=== PATIENT | female | born 1950 | race Caucasian/White ===

== ENCOUNTER 2016-09-14 08:08 | Outpatient (CLI) | payer MEDICAID ==
[2016-09-14] MEDS ORDERED: IOPAMIDOL-300 100 ML VIAL IVP ONE (10:02)
[2016-09-14] MEDS ORDERED: IOPAMIDOL-300 50 ML VIAL PO ONE (10:02)
== END 2016-09-14 08:09 | disposition home or self-care (01) ==
DX: K44.9 Diaphragmatic hernia without obstruction or gangrene (principal); K42.9 Umbilical hernia without obstruction or gangrene; N28.1 Cyst of kidney, acquired; D18.03 Hemangioma of intra-abdominal structures
CPT/HCPCS: 36415; 74160; 82565; Q9967

== ENCOUNTER 2016-10-19 06:05 | Inpatient (IN) | payer MEDICAID ==
[2016-10-19] MEDS ORDERED: ceFAZolin 2 GM/50 ML 50 ML IV ONE (06:30)
[2016-10-19] MEDS ORDERED: LACTATED RINGERS 1,000 ML IV ONE ×4 (06:35→13:15)
[2016-10-19] MEDS ORDERED: fentaNYL 250 MCG/5 ML VIAL IVP ONE (08:00)
[2016-10-19] MEDS ORDERED: NEOSTIGMINE 1 MG/1 ML 10 ML MDV IVP ONE (08:00)
[2016-10-19] MEDS ORDERED: PROPOFOL 200 MG/20 ML VIAL IVP ONE (08:00)
[2016-10-19] MEDS ORDERED: ACETAMINOPHEN 1,000 MG/100 ML VIAL IV ONE (08:00)
[2016-10-19] MEDS ORDERED: SUCCINYLCHOLINE 200 MG/10 ML VIAL IVP ONE (08:00)
[2016-10-19] MEDS ORDERED: ONDANSETRON 4 MG/2 ML VIAL IVP ONE (08:00)
[2016-10-19] MEDS ORDERED: GLYCOPYRROLATE 1 MG/5 ML VIAL IVP ONE (08:00)
[2016-10-19] MEDS ORDERED: MIDAZOLAM 2 MG/2 ML VIAL IVP ONE (08:00)
[2016-10-19] MEDS ORDERED: DEXAMETHASONE 4 MG/ML VIAL IVP ONE (08:00)
[2016-10-19] MEDS ORDERED: LIDOCAINE-MPF 2% 5 ML VIAL IM ONE (08:00)
[2016-10-19] MEDS ORDERED: HYDROmorphone 1 MG/ML SYRINGE IVP ONE (08:00)
[2016-10-19] MEDS ORDERED: ROCURONIUM 50 MG/5 ML VIAL IVP ONE (08:00)
[2016-10-19] MEDS ORDERED: BUPIVACAINE 0.5%-EPI 1:200000 PF 30 ML VIAL SUBQ ONE (08:28)
[2016-10-19] MEDS ORDERED: SUFENTA/ROPIV 0.5 MCG/0.2% 150 ML EP PRN (09:33)
[2016-10-19] MEDS ORDERED: METOCLOPRAMIDE 10 MG/2 ML VIAL IVP PRN (10:01)
[2016-10-19] MEDS ORDERED: NALBUPHINE 20 MG/ML AMP IVP PRN (10:01)
[2016-10-19] MEDS ORDERED: ONDANSETRON 4 MG/2 ML VIAL ONE (14:20)
[2016-10-19] MEDS: D5NS W/20 MEQ KCL 1,000 ML IV SCH ×2 (14:30→23:42)
[2016-10-19] MEDS ORDERED: LACTATED RINGERS 500 ML IV ONE (15:00)
[2016-10-19] MEDS: SODIUM CHLORIDE FLUSH 0.9% 10 ML SYRINGE IVP SCH ×2 (15:25→22:55)
[2016-10-19] MEDS: ceFAZolin 2 GM/50 ML 50 ML IV SCH (17:56)
[2016-10-20] MEDS: ceFAZolin 2 GM/50 ML 50 ML IV SCH (00:44)
[2016-10-20] MEDS ORDERED: SODIUM CHLORIDE 0.9% 500 ML IV SCH (01:01)
[2016-10-20] MEDS: PANTOPRAZOLE 40 MG VIAL IVP SCH (06:46)
[2016-10-20] MEDS: SODIUM CHLORIDE FLUSH 0.9% 10 ML SYRINGE IVP SCH ×3 (06:46→21:44)
[2016-10-20] MEDS: D5NS W/20 MEQ KCL 1,000 ML IV SCH ×3 (07:03→16:23)
[2016-10-20] MEDS: diphenhydrAMINE INJ 50 MG/ML VIAL IV PRN ×2 (10:00→12:02)
[2016-10-20] MEDS: SODIUM CHLORIDE FLUSH 0.9% 10 ML SYRINGE IVP PRN (12:03)
[2016-10-20] MEDS: ONDANSETRON 4 MG/2 ML VIAL IVP PRN (15:37)
[2016-10-20] MEDS ORDERED: NALBUPHINE 20 MG/ML AMP IVP PRN (15:54)
[2016-10-20] MEDS ORDERED: diphenhydrAMINE INJ 50 MG/ML VIAL IVP PRN (15:54)
[2016-10-20] MEDS ORDERED: ONDANSETRON 4 MG/2 ML VIAL IVP PRN (15:54)
[2016-10-20] MEDS: SUFENTA/ROPIV 0.5 MCG/0.2% 150 ML EP PRN ×2 (16:33→18:18)
[2016-10-21] MEDS: D5NS W/20 MEQ KCL 1,000 ML IV SCH ×4 (00:21→20:11)
[2016-10-21] MEDS: SODIUM CHLORIDE FLUSH 0.9% 10 ML SYRINGE IVP PRN (00:21)
[2016-10-21] MEDS: ONDANSETRON 4 MG/2 ML VIAL IVP PRN (00:30)
[2016-10-21] MEDS: diphenhydrAMINE INJ 50 MG/ML VIAL IV PRN ×2 (00:41→09:23)
[2016-10-21] MEDS: SUFENTA/ROPIV 0.5 MCG/0.2% 150 ML EP PRN ×2 (04:35→15:54)
[2016-10-21] MEDS: SODIUM CHLORIDE FLUSH 0.9% 10 ML SYRINGE IVP SCH ×3 (06:51→20:11)
[2016-10-21] MEDS: PANTOPRAZOLE 40 MG VIAL IVP SCH (06:51)
[2016-10-22] MEDS: SUFENTA/ROPIV 0.5 MCG/0.2% 150 ML EP PRN ×3 (01:43→22:09)
[2016-10-22] MEDS: D5NS W/20 MEQ KCL 1,000 ML IV SCH ×3 (03:09→20:33)
[2016-10-22] MEDS: PANTOPRAZOLE 40 MG VIAL IVP SCH (06:21)
[2016-10-22] MEDS: SODIUM CHLORIDE FLUSH 0.9% 10 ML SYRINGE IVP SCH ×3 (06:22→20:15)
[2016-10-23] MEDS: SODIUM CHLORIDE FLUSH 0.9% 10 ML SYRINGE IVP SCH ×3 (06:38→19:59)
[2016-10-23] MEDS: D5NS W/20 MEQ KCL 1,000 ML IV SCH ×2 (06:38→11:52)
[2016-10-23] MEDS: PANTOPRAZOLE 40 MG VIAL IVP SCH (06:45)
[2016-10-23] MEDS ORDERED: oxyCOD/ACETAMIN 5 MG/325 MG TABLET PO PRN (09:59)
[2016-10-23] MEDS: ONDANSETRON 4 MG/2 ML VIAL IVP PRN (16:51)
[2016-10-23] MEDS: oxyCOD/ACETAMIN 5 MG/325 MG TABLET PO PRN (16:55)
[2016-10-23] MEDS ORDERED: D5NS W/20 MEQ KCL 1,000 ML IV SCH (18:14)
[2016-10-23] MEDS: HYDROmorphone 1 MG/ML SYRINGE IVP PRN ×2 (19:57→22:10)
[2016-10-24] MEDS: oxyCOD/ACETAMIN 5 MG/325 MG TABLET PO PRN ×2 (05:25→09:26)
[2016-10-24] MEDS: SODIUM CHLORIDE FLUSH 0.9% 10 ML SYRINGE IVP SCH (06:01)
[2016-10-24] MEDS: PANTOPRAZOLE 40 MG VIAL IVP SCH (06:30)
[2016-10-24] MEDS ORDERED: hydroCHLOROthiazide 12.5 MG CAPSULE PO SCH (09:00)
[2016-10-24] MEDS ORDERED: LOSARTAN 50 MG TABLET PO SCH (09:00)
== END 2016-10-24 09:49 | disposition home or self-care (01) | DRG 328 ==
PROC: 0WQF0ZZ Repair Abdominal Wall, Open Approach (ICD-10-PCS; principal; 2016-10-19 07:30)
PROC: 0FN00ZZ Release Liver, Open Approach (ICD-10-PCS; principal; 2016-10-19 07:30)
PROC: 0DS60ZZ Reposition Stomach, Open Approach (ICD-10-PCS; principal; 2016-10-19 07:30)
PROC: 0DNS0ZZ (ICD-10-PCS; principal; 2016-10-19 07:30)
PROC: 0DN60ZZ Release Stomach, Open Approach (ICD-10-PCS; principal; 2016-10-19 07:30)
PROC: 0DJ04ZZ Inspection of Upper Intestinal Tract, Percutaneous Endoscopic Approach (ICD-10-PCS; principal; 2016-10-19 07:30)
PROC: 0DN80ZZ Release Small Intestine, Open Approach (ICD-10-PCS; principal; 2016-10-19 07:30)
PROC: 0DQ40ZZ Repair Esophagogastric Junction, Open Approach (ICD-10-PCS; principal; 2016-10-19 07:30)
DX: K21.9 Gastro-esophageal reflux disease without esophagitis (principal); K44.9 Diaphragmatic hernia without obstruction or gangrene; K43.2 Incisional hernia without obstruction or gangrene; K66.0 Peritoneal adhesions (postprocedural) (postinfection); I10 Essential (primary) hypertension; E78.00 Pure hypercholesterolemia, unspecified; F41.9 Anxiety disorder, unspecified; Z87.01 Personal history of pneumonia (recurrent); Z87.891 Personal history of nicotine dependence; Z79.82 Long term (current) use of aspirin

== ENCOUNTER 2017-01-24 08:04 | Outpatient (CLI) | payer OTHER ==
--- NOTE | 2017-01-24 11:24 | XRAY Report ---
LEFT HIP AND PELVIS: 01/24/2017 CLINICAL INDICATION: Pain, decreased range of motion. FINDINGS: Frontal view of the hips and pelvis and frogleg lateral view of the left hip demonstrate m ild osteoarthritis. There is no evidence of acute fracture or dislocation. No radiopaque foreign body is seen in the soft tissues. IMPRESSION: MILD LEFT HIP OSTEOARTHRITIS. JOB #: [id number] EXT JOB #:[id number]
== END 2017-01-24 08:05 | disposition home or self-care (01) ==
LOC: DI 08:04
PROVIDERS: ATTEND Physician Assistant
DX: R01.1 Cardiac murmur, unspecified (principal); M16.12 Unilateral primary osteoarthritis, left hip; I51.7 Cardiomegaly
CPT/HCPCS: 93306

== ENCOUNTER 2017-05-15 08:48 | Emergency (ER) | payer OTHER, MEDICAID ==
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
[2017-05-15] MEDS: oxyCOD/ACETAMIN 5 MG/325 MG TABLET PO STA ×2 (09:10→14:14)
[2017-05-15] MEDS ORDERED: oxyCOD/ACETAMIN 5 MG/325 MG TABLET PO ONE ×2 (09:12→14:16)
--- NOTE | 2017-05-15 10:13 | XRAY Preliminary Report ---
Exam: XR Knee 4 View RT IMPRESSION: 1. No definite acute osseous abnormality. 2. Mild possible cortical concavity along the anterior femoral condyle may be degenerative in nature. Small impaction fracture, less likely. 3. Nodular calcifications/ossifications at the medial aspect of the knee appear chronic, likely ligam entous. Loose bodies not excluded. 4. Small joint effusion. 5. Degenerative disease. 6. Probable mild anterior soft tissue swelling. [facility] SITE ID: [id number]
--- NOTE | 2017-05-15 10:16 | XRAY Report ---
EXAM: RIGHT KNEE RADIOGRAPHY EXAM DATE: 05/15/2017 09:46 AM. CLINICAL HISTORY: Fall. Fall this morning resulting in injury and pain to right knee and anterior abr asion to patellar region. COMPARISON: None. TECHNIQUE: 3 views. FINDINGS: Bones: No definite fracture or acute bone lesion. Mild focal concavity along the anterior articular s urface of the femoral condyle, likely the medial, on the lateral view may be due to superimposition o f some spurring. A small area of focal impaction fracture is considered less likely. Joints: No subluxation. Significant joint space narrowing not evident on these nonweightbearing views . There is evidence of some medial compartment degenerative disease. Medial tibial spine spurring pre sent. Small joint effusion. Nodular calcifications/ossifications medial to the joint space and medial femoral condyle have a chronic appearance, likely ligamentous calcifications. Loose bodies not exclu ded. Old fracture fragments, less likely. Soft Tissues: Probable mild pretibial and proximal prepatellar soft tissue swelling. IMPRESSION: 1. No definite acute osseous abnormality. 2. Mild possible cortical concavity along the anterior femoral condyle may be degenerative in nature. Small impaction fracture, less likely. 3. Nodular calcifications/ossifications at the medial aspect of the knee appear chronic, likely ligam entous. Loose bodies not excluded. 4. Small joint effusion. 5. Degenerative disease. 6. Probable mild anterior soft tissue swelling. [facility] Referring Provider Line: [phone] SITE ID: [id number]
--- NOTE | 2017-05-15 10:18 | XRAY Preliminary Report ---
Exam: XR Forearm RT IMPRESSION: 1. No definite acute abnormality. 2. Nondisplaced chronic or acute radial neck fracture not excluded. Clinical correlation recommended. If there were to be symptoms at this site, dedicated elbow radiography could be performed. [facility] SITE ID: [id number]
--- NOTE | 2017-05-15 10:19 | XRAY Preliminary Report ---
Exam: XR Forearm LT IMPRESSION: Normal left forearm radiography. [facility] SITE ID: [id number]
--- NOTE | 2017-05-15 10:22 | XRAY Report ---
EXAM: LEFT FOREARM RADIOGRAPHY EXAM DATE: 05/15/2017 09:45 AM. CLINICAL HISTORY: Pain after fall. COMPARISON: 05/15/2017. TECHNIQUE: 2 views. FINDINGS: Bones: Normal. No fractures or bone lesions. Joints: Normal. No effusions or subluxations in the visualized wrist or elbow joints. Soft Tissues: Normal. No soft tissue swelling. IMPRESSION: Normal left forearm radiography. [facility] Referring Provider Line: [phone] SITE ID: [id number]
--- NOTE | 2017-05-15 10:24 | CT Preliminary Report ---
Exam: CT Head W/O IMPRESSION: Generalized mild age-related cortical atrophic changes without evidence of acute intracra nial abnormality. [facility] SITE ID: [id number]
--- NOTE | 2017-05-15 10:24 | XRAY Report ---
EXAM: RIGHT FOREARM RADIOGRAPHY EXAM DATE: 05/15/2017 09:46 AM. CLINICAL HISTORY: Fall. Fall this morning. Forearm pain. COMPARISON: None. TECHNIQUE: 2 views. FINDINGS: Bones: No definite acute fracture. Subtle possible sclerosis and minimal cortical irregularity involv ing the radial neck. Nondisplaced fracture, chronic or acute, is not excluded and clinical correlatio n is recommended. Joints: No joint subluxation. First carpometacarpal joint degenerative disease. Soft Tissues: Normal. No soft tissue swelling. IMPRESSION: 1. No definite acute abnormality. 2. Nondisplaced chronic or acute radial neck fracture not excluded. Clinical correlation recommended. If there were to be symptoms at this site, dedicated elbow radiography could be performed. [facility] Referring Provider Line: [phone] SITE ID: [id number]
--- NOTE | 2017-05-15 10:26 | CT Report ---
EXAM: CT HEAD EXAM DATE: 05/15/2017 09:56 AM. CLINICAL HISTORY: Fall with head and facial injury. Facial abrasion. Pain. COMPARISON: None. TECHNIQUE: Multiaxial CT images were obtained from the foramen magnum to the vertex. IV contrast: Non e. Reformats: Coronal. In accordance with CT protocol optimization, one or more of the following dose reduction techniques w ere utilized for this exam: automated exposure control, adjustment of mA and/or KV based on patient s ize, or use of iterative reconstructive technique. FINDINGS: Parenchyma: No intraparenchymal hemorrhage. No evidence of mass, midline shift, or CT findings of acu te infarction. Grewal-white differentiation is distinct. Extraaxial Spaces: Normal for age. No subdural or epidural collections identified. Ventricles: The ventricles and cortical sulci are mildly enlarged, consistent with age-related tissue loss. Sinuses: Imaged paranasal sinuses, orbits, and mastoids show no significant abnormality. Bones: No evidence of fracture or calvarial defect. Other: Diffuse mild chronic microangiopathic white matter changes are evident. IMPRESSION: Generalized mild age-related cortical atrophic changes without evidence of acute intracra nial abnormality. [facility] Referring Provider Line: [phone] SITE ID: [id number]
--- NOTE | 2017-05-15 10:28 | CT Preliminary Report ---
Exam: CT Cervical Spine W/O IMPRESSION: 1. No acute osseous abnormality in the cervical spine. 2. Moderate to severe degenerative cervical spondylosis. [facility] SITE ID: [id number]
--- NOTE | 2017-05-15 10:31 | CT Report ---
EXAM: CT CERVICAL SPINE WITHOUT CONTRAST DATE: 05/15/2017 09:56 AM HISTORY: Fall; head injury. Neck pain. COMPARISONS: None. TECHNIQUE: Thin-section axial images were acquired of the cervical spine without contrast. Post-proce ssing: Coronal and sagittal reformats. Other: None. In accordance with CT protocol optimization, one or more of the following dose reduction techniques w ere utilized for this exam: automated exposure control, adjustment of mA and/or KV based on patient s ize, or use of iterative reconstructive technique. FINDINGS: Alignment: Normal. No scoliosis or spondylolisthesis. Bones: No fracture or bone lesion. Interspace Levels/Facets: Partial fusion at C4-C5 may be congenital. Moderate to severe multilevel de creased disk height, most pronounced at C5-C6 and C6-C7 where there are small posterior disk osteophy te complexes. Moderate multilevel facet arthropathy. Other: The paravertebral and prevertebral soft tissues are normal. The lung apices are clear. IMPRESSION: 1. No acute osseous abnormality in the cervical spine. 2. Moderate to severe degenerative cervical spondylosis. [facility] Referring Provider Line: [phone] SITE ID: [id number]
--- NOTE | 2017-05-15 10:32 | CT Preliminary Report ---
Exam: CT Facial Bones W/O IMPRESSION: Acute, comminuted nasal bone fracture. [facility] SITE ID: [id number]
--- NOTE | 2017-05-15 10:35 | CT Report ---
EXAM: CT MAXILLOFACIAL WITHOUT CONTRAST EXAM DATE: 05/15/2017 09:56 AM. CLINICAL HISTORY: Fall; head and facial injury. Pain. COMPARISONS: None. TECHNIQUE: Thin-section axial images were acquired of the face without contrast. Post-processing: Cor onal and sagittal reformats. Other: None. In accordance with CT protocol optimization, one or more of the following dose reduction techniques w ere utilized for this exam: automated exposure control, adjustment of mA and/or KV based on patient s ize, or use of iterative reconstructive technique. FINDINGS: Bones: Comminuted nasal bone fracture. No other fracture. Temporomandibular Joints: The temporomandibular joints are symmetric and normally located. Sinuses: Normal. No mucosal thickening or fluid levels. Other: Diffuse soft tissue swelling about the nose. Small fluid in the left mastoid air cells. IMPRESSION: Acute, comminuted nasal bone fracture. [facility] Referring Provider Line: [phone] SITE ID: [id number]
[2017-05-15] MEDS ORDERED: LIDOCAINE-EPINEPH-TETRACAINE 3 ML SYRINGE TOP ONE (10:40)
[2017-05-15] MEDS: LIDOCAINE-EPINEPH-TETRACAINE 3 ML SYRINGE TOP STA (10:41)
[2017-05-15] MEDS ORDERED: SODIUM CHLORIDE FLUSH 0.9% 10 ML SYRINGE IVP ONE (12:11)
[2017-05-15] MEDS: CEPHALEXIN 250 MG CAPSULE PO STA (12:45)
[2017-05-15] MEDS ORDERED: CEPHALEXIN 250 MG CAPSULE PO ONE (12:48)
[2017-05-15] MEDS: LIDOCAINE 1% 2 ML VIAL SUBQ STA (13:10)
[2017-05-15] MEDS ORDERED: LIDOCAINE 1% 2 ML VIAL ONE (13:12)
[2017-05-15 13:51] VITALS: BP 128/69
== END 2017-05-15 14:10 | disposition home or self-care (01) ==
LOC: ED 08:48
DX: S02.2XXB Fracture of nasal bones, initial encounter for open fracture (principal); S01.81XA Laceration without foreign body of other part of head, initial encounter; S42.401A Unspecified fracture of lower end of right humerus, initial encounter for closed fracture; S89.91XA Unspecified injury of right lower leg, initial encounter; W18.09XA Striking against other object with subsequent fall, initial encounter; Y92.410 Unspecified street and highway as the place of occurrence of the external cause; I10 Essential (primary) hypertension
CPT/HCPCS: 12013; 70450; 70486; 72125; 96372; 99283

== ENCOUNTER 2017-09-11 08:04 | Outpatient (CLI) | payer MEDICARE ==
--- NOTE | 2017-09-12 16:07 | Mammography Report ---
DATE OF SERVICE: 09/11/2017 DIGITAL SCREENING MAMMOGRAM: 09/11/2017 CLINICAL INDICATION: A 67-year-old with history of late childbearing for screening. COMPARISON: 07/2009, 06/2008, 05/2007. TECHNIQUE: Routine CC and MLO projections were obtained of the breasts. FINDINGS: The breasts demonstrate scattered fibroglandular densities bilaterally. Coarse and punctate, typically benign calcifications are present. No suspicious masses, clustered microcalcifications, or regions of architectural distortion are identified. IMPRESSION: BENIGN FINDINGS. RECOMMENDATION: Routine annual screening unless otherwise clinically indicated. BIRADS CATEGORY 2 - BENIGN FINDINGS. STANDARD QUALIFYING STATEMENTS: 1. This examination was reviewed with the aid of Computer-Aided Detection (CAD). 2. A negative or benign imaging report should not delay biopsy if clinically suspicious findings are present. Consider surgical consultation if warranted. More than 5% of cancers are not identified by imaging. 3. Dense breasts may obscure an underlying neoplasm. TD: 09/12/2017 16:06
== END 2017-09-11 08:05 | disposition home or self-care (01) ==
LOC: DI 08:04
PROVIDERS: ATTEND Physician Assistant
DX: Z12.31 Encounter for screening mammogram for malignant neoplasm of breast (principal)
CPT/HCPCS: 77067

== ENCOUNTER 2017-09-11 08:07 | Outpatient (CLI) | payer MEDICARE ==
--- NOTE | 2017-09-11 16:53 | DEXA Report ---
DEXA SCAN: 09/11/2017 CLINICAL INDICATION: Postmenopausal. TECHNIQUE: Dual energy x-ray absorptiometry (DXA) was performed on a [employer] system. Regions measured are the AP spine, femoral neck, and, if needed, forearm. COMPARISON: None. In accordance with the International Society for Clinical Densitometry (ISCD) guidelines, data from previous exams may be reanalyzed using current recommendations andtechniques. This is done to allow a more accurate basis for comparison with the current study. FINDINGS: The data for the lumbar spine is as follows: REGION BMD (g/cm/cm) T-SCORE Z-SCORE L1 0.909 -1.8 -1.0 L2 1.008 -1.6 -0.8 L3 1.022 -1.5 -0.7 L4 1.013 -1.6 -0.7 TOTAL 0.991 -1.6 -0.8 NOTE: All evaluable vertebrae are used for classification. The data for the hip is as follows: REGION BMD (g/cm/cm) T-SCORE Z-SCORE Neck 1.179 1.0 2.0 TOTAL 0.967 -0.3 0.3 NOTE: The femoral neck or total proximal femur, whichever is lowest, is used for classification. IMPRESSION THE WHO CLASSIFICATION BASED ON THE INTERNATIONAL REFERENCE STANDARD IS OSTEOPENIA. THE FRACTURE RISK IS INCREASED. RECOMMENDATION: Patients with diagnosis of osteoporosis or osteopenia should have regular bone mineral density assessment. For those eligible for Medicare, routine testing is allowed once every 2 years. Testing frequency can be increased for patients who have rapidly progressing disease or for those who are receiving medical therapy to restore bone mass. COMMENT: World Health Organization (WHO) definitions for osteoporosis and osteopenia: NORMAL BMD: T-score at 1.0 or higher, fracture risk is low. OSTEOPENIA BMD: T-score between 1.0 and -2.5, fracture risk is increased. OSTEOPOROSIS BMD: T-score at 2.5 or lower, fracture risk high. National Osteoporosis Foundation recommends: 1. Obtain adequate dietary calcium (at least 1200 mg per day) and vitamin D (400 -800 international units per day). 2. Participate, as appropriate, in regular weightbearing and muscle- strengthening exercise. 3. Avoid tobacco use and reduce alcohol and caffeine intake. 4. For more detailed information see the website at www.NOF.org. TD: 09/11/2017 11:47 MTDD
== END 2017-09-11 08:08 | disposition home or self-care (01) ==
LOC: DI 08:07
PROVIDERS: ATTEND Physician Assistant
DX: Z13.820 Encounter for screening for osteoporosis (principal); M85.88 Other specified disorders of bone density and structure, other site; N95.8 Other specified menopausal and perimenopausal disorders
CPT/HCPCS: 77080

== ENCOUNTER 2019-10-01 07:08 | Day surgery (SDC) | payer MEDICARE ==
[~2019-10-01 07:08] MED LIST: SODIUM/POTASSIUM/MAG SULFATES 354 ML PREP KIT PO SCH
[2019-10-01] MEDS ORDERED: LACTATED RINGERS 1,000 ML IV ONE (07:19)
[2019-10-01] MEDS ORDERED: MIDAZOLAM 2 MG/2 ML VIAL IVP ONE (09:08)
[2019-10-01] MEDS ORDERED: fentaNYL 250 MCG/5 ML VIAL IVP ONE (09:08)
[2019-10-01 10:13] VITALS: BP 123/64
== END 2019-10-01 07:09 | disposition home or self-care (01) ==
LOC: SDS 07:08
PROVIDERS: ATTEND Surgery
PROC: 0DBN8ZX Excision of Sigmoid Colon, Via Natural or Artificial Opening Endoscopic, Diagnostic (ICD-10-PCS; 2019-10-01)
PROC: 0DBP8ZX Excision of Rectum, Via Natural or Artificial Opening Endoscopic, Diagnostic (ICD-10-PCS; principal; 2019-10-01 08:45)
DX: Z12.11 Encounter for screening for malignant neoplasm of colon (principal); K63.5 Polyp of colon; K62.1 Rectal polyp; K64.4 Residual hemorrhoidal skin tags; K64.8 Other hemorrhoids; I10 Essential (primary) hypertension; E78.00 Pure hypercholesterolemia, unspecified; F41.9 Anxiety disorder, unspecified; Z87.891 Personal history of nicotine dependence
CPT/HCPCS: 45380; A9270; J3010; J7120

== ENCOUNTER 2022-05-21 15:06 | Outpatient (CLI) | payer MEDICARE ==
--- NOTE | 2022-05-22 11:34 | Mammography Report ---
BILATERAL DIGITAL SCREENING MAMMOGRAM 3D/2D WITH EXAGGERATED CC: 05/21/2022 CLINICAL: Routine screening. Comparison is made to exams dated: 09/11/2017 mammogram and 07/22/2009 mammogram - [facility]. There are scattered areas of fibroglandular density in both breasts (category b / 25%-50% glandular t issue). There are benign calcifications in both breasts. There also are benign vascular calcifications in harry th breasts. No significant masses, calcifications, or other findings are seen in either breast. There has been no significant interval change. IMPRESSION: BENIGN There is no mammographic evidence of malignancy. A 1 year screening mammogram is recommended. Based on the Tyrer Cuzick model (a risk assessment model) the patients lifetime risk is 5.8% and her 10 year risk is 3.4%. According to the ACR, ACS, and NCCN guidelines, an annual breast MRI exam angelic g with mammogram is recommended if the patients lifetime risk is 20% or greater. This exam was interpreted at Station ID: [id number]. NOTE: For mammograms, a report in lay terms will be sent to the patient. Approximately 15% of breast malignancies will not be visualized mammographically. In the management of a palpable breast mass, a negative mammogram must not discourage biopsy of a clinically suspicious lesion. Electronically Signed By: Paul wheeler/latisha:05/22/2022 09:11:04 ACR BI-RADS Category 2: Benign Finding(s) 3342F PARENCHYMAL PATTERN: (A) - The breast(s) demonstrate(s) scattered fibroglandular densities. BI-RADS CATEGORY: (2) - 2 RECOMMENDATION: (ANNUAL) - Recommend routine annual screening mammography. [id number] 1 year screening LATERALITY: (B)
== END 2022-05-21 15:07 | disposition home or self-care (01) ==
LOC: DI.S 15:06
PROVIDERS: ATTEND Nurse Practitioner Family
DX: Z12.31 Encounter for screening mammogram for malignant neoplasm of breast (principal)

== ENCOUNTER 2022-11-21 11:55 | Outpatient (CLI) | payer MEDICARE | END 2022-11-21 11:56 | disposition critical access hospital (66) | LOC: EMS 11:55 | DX: M54.2 Cervicalgia (principal); V43.53XA Car driver injured in collision with pick-up truck in traffic accident, initial encounter; Y92.413 State road as the place of occurrence of the external cause | CPT/HCPCS: A0425; A0429 ==

== ENCOUNTER 2022-11-21 12:26 | Emergency (ER) | payer MEDICARE ==
[2022-11-21] MEDS ORDERED: ACETAMINOPHEN 1,000 MG/100 ML 1,000 MG/100 ML BAG IV ONE (12:34)
[2022-11-21] MEDS ORDERED: ONDANSETRON 4 MG/2 ML VIAL IVP STA (12:41)
[2022-11-21] MEDS ORDERED: MORPHINE 2 MG/ML CARPUJECT IVP STA (12:41)
[2022-11-21] MEDS ORDERED: HYDROmorphone 1 MG/ML CARPUJECT IVP STA (13:32)
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
[2022-11-21] MEDS ORDERED: ACETAMINOPHEN 500 MG TABLET PO STA (13:40)
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
[2022-11-21 14:20] VITALS: BP 176/84
[2022-11-21] MEDS ORDERED: LIDOCAINE PATCH 5% TOP STA (14:25)
== END 2022-11-21 15:00 | disposition home or self-care (01) ==
LOC: EDUNIT# → ED 12:26
DX: S16.1XXA Strain of muscle, fascia and tendon at neck level, initial encounter (principal); V89.2XXA Person injured in unspecified motor-vehicle accident, traffic, initial encounter; Y93.89 Activity, other specified; I10 Essential (primary) hypertension
CPT/HCPCS: 70450; 72125; 96374; 96375; 99283; 99284; A9270; J1170

== ENCOUNTER 2023-03-28 11:07 | Outpatient (CLI) | payer MEDICARE ==
[2023-03-28] MEDS ORDERED: BARIUM SULFATE 450 ML BOTTLE PO ONE (15:39)
[2023-03-28] MEDS ORDERED: iohexoL-300 100 ML VIAL IVP ONE (15:39)
--- NOTE | 2023-03-28 16:06 | CT Report ---
PROCEDURE: ABDOMEN W INDICATIONS: RIGHT UPPER QUADRANT PAIN CONTRAST: 100mL Omnipaque 300 TECHNIQUE: After the administration of oral and intravenous contrast, 5 mm thick sections acquired from the diap hragms to the iliac crests. 5 mm thick coronal and sagittal reformats were acquired. For radiation dose reduction, the following was used: automated exposure control, adjustment of mA and/or kV accor ding to patient size. COMPARISON: Abdominal ultrasound 03/11/2020, CT abdomen 09/14/2016 FINDINGS: Visualized lung bases: No pleural effusion. Liver and biliary tree: No suspect focal hepatic lesion. No biliary ductal dilation. Gallbladder: Possible/equivocal small stone near the fundus (2/40). Spleen: Unremarkable. Pancreas: Unremarkable. Adrenal glands: Unremarkable. Kidneys and ureters: No hydronephrosis. Redemonstrated right renal cortical cyst without suspicious f eatures identified. 2-3 mm nonobstructing stone right mid kidney, not significantly changed. Gastrointestinal tract: Visualized small and large bowel is non-dilated. Visualized peritoneal cavity: No free air or free fluid. Vasculature: No abdominal aortic aneurysm. Lymph nodes: No highly suspicious lymph nodes visualized. Abdominal wall: Multiple small fat-containing midline ventral abdominal wall hernias present. Musculoskeletal: Degenerative change of the spine. IMPRESSION: 1. Possible small gallstone present. The gallbladder is not well evaluated by CT. Abdominal ultrasoun d could be obtained for further evaluation if clinically indicated. 2. Small nonobstructing right renal stone as before. Reviewed by: Raymond Owen MD on 03/28/2023 4:04 PM PDT Approved by: Raymond Owen MD on 03/28/2023 4:04 PM PDT Station ID: [id number]
== END 2023-03-28 11:08 | disposition home or self-care (01) ==
LOC: DI 11:07
PROVIDERS: ATTEND Nurse Practitioner Family
DX: R10.11 Right upper quadrant pain (principal); N20.0 Calculus of kidney
CPT/HCPCS: 74160; A9270; Q9967

== ENCOUNTER 2023-06-15 14:27 | Emergency (ER) | payer MEDICARE ==
[2023-06-15 14:52] LABS: BASOPHILS % (AUTO) 0.2 %; EOSINOPHILS % (AUTO) 0.1 %; HCT - HEMATOCRIT 42.7 % (37.0-47.0); LYMPHOCYTES # (AUTO) 1.4 10^3/uL (1.5-3.5); LYMPHOCYTES % (AUTO) 11.4 %; MEAN CORPUSCULAR HEMOGLOBIN 29.4 pg (27.0-31.0); MEAN CORPUSCULAR HGB CONC 32.8 g/dL (32.0-36.0); MEAN CORPUSCULAR VOLUME 89.7 fL (81.0-99.0); MEAN PLATELET VOLUME 11.5 fL (7.9-10.8); MONOCYTES # (AUTO) 0.8 10^3/uL (0.0-1.0); MONOCYTES % (AUTO) 6.2 %; NEUTROPHILS # (AUTO) 10.2 10^3/uL (1.5-6.6); NEUTROPHILS % (AUTO) 81.8 %; PLT - PLATELET COUNT 239 10^3/uL (130-450); RED BLOOD COUNT 4.76 10^6/uL (4.20-5.40); RED CELL DISTRIBUTION WIDTH 13.9 % (12.0-15.0); WHITE BLOOD COUNT 12.5 x10^3/uL (4.8-10.8)
[2023-06-15 15:14] LABS: ALBUMIN 4.7 g/dL (3.2-5.5); ALBUMIN/GLOBULIN RATIO 1.5 (1.0-2.2); BILIRUBIN,TOTAL 0.9 mg/dL (0.2-1.0); CALCIUM 9.9 mg/dL (8.5-10.3); CREATININE 0.9 mg/dL (0.6-1.3); POTASSIUM 3.7 mmol/L (3.5-4.5); TOTAL PROTEIN 7.8 g/dL (6.4-8.9)
[2023-06-15] MEDS ORDERED: ONDANSETRON 4 MG/2 ML VIAL IVP STA (15:57)
[2023-06-15] MEDS ORDERED: SODIUM CHLORIDE 0.9% 1,000 ML IV STA (15:57)
[2023-06-15] MEDS ORDERED: HYDROmorphone 1 MG/ML CARPUJECT IVP STA ×2 (15:57→18:00)
--- NOTE | 2023-06-15 15:59 | ED Physician Documentation ---
PD HPI ABD PAIN - Stated complaint Stated Complaint: ABD PX - Chief complaint Chief Complaint: Abd Pain - History obtained from History obtained from: Patient - Additional information Additional information: 72-year-old woman with history of hysterectomy, hiatal hernia repair x2, hypertension and anxiety presents with abdominal pain. It started gradually over the last 24 hours and is much more severe today and seems more on the right side with radiation to the right flank. She has been vomiting and cannot keep anything down with diminished bowel movements related to same and concentrated urine without other urinary complaints. She had a CT a few months ago for right upper quadrant pain showing both a gallstone and a nephrolith on that side. PD PAST MEDICAL HISTORY - Past Medical History Past Medical History: Yes Cardiovascular: Hypertension, High cholesterol Respiratory: None Endocrine/Autoimmune: None GI: GERD, Hiatal hernia : Frequency HEENT: Chronic hearing loss Psych: None, Depression, Anxiety, Claustrophobia Musculoskeletal: None Derm: None - Past Surgical History Past Surgical History: Yes General: Appendectomy /LVN HOME HEALTH: Hysterectomy HEENT: Tonsil/Adenoidectomy - Present Medications Home Medications: Ambulatory Orders Medication Instructions Recorded Confirmed Losartan/Hydrochlorothiazide 1 each PO DAILY 10/18/16 06/15/23 [Hyzaar 50-12.5 Tablet] Atorvastatin Calcium [Lipitor] 40 mg PO QPM 10/19/16 06/15/23 Trazodone HCl 100 mg PO QPM 10/19/16 06/15/23 buPROPion HCL [Bupropion HCl Sr] 300 mg PO BID 10/19/16 06/15/23 Cefdinir 300 mg PO BID #20 cap 06/15/23 Ondansetron Odt [Zofran] 4 mg TL Q6H PRN #10 tablet 06/15/23 Oxycodone HCl/Acetaminophen 1 - 2 each PO Q6H PRN #14 tablet 06/15/23 [Percocet 5-325 mg Tablet] - Allergies Allergies/Adverse Reactions: Allergies Allergy/AdvReac Type Severity Reaction Status Date / Time No Known Drug Allergies Allergy Verified 11/21/22 13:31 - Social History Does the pt smoke?: No Smoking Status: Never smoker Does the pt drink ETOH?: No Does the pt have substance abuse?: No - Immunizations Immunizations are current?: Yes - POLST Patient has POLST: No PD ED PE NORMAL - Vitals Vital signs reviewed: Yes - General General: Alert and oriented X 3, No acute distress - HEENT HEENT: PERRL, EOMI - Neck Neck: Supple, no meningeal sign, No bony TTP - Cardiac Cardiac: RRR, No murmur - Respiratory Respiratory: No respiratory distress, Clear bilaterally - Abdomen Abdomen: Other (Right upper quadrant tenderness without surgical signs, slightly diminished but not absent bowel sounds.) - Extremities Extremities: No edema, No calf tenderness / cord - Neuro Neuro: Alert and oriented X 3, Normal speech Results - Vitals Vitals: Vital Signs - 24 hr 06/15/23 06/15/23 06/15/23 14:32 16:21 18:24 Temperature 36.8 C 36.1 C L Heart Rate 70 63 65 Respiratory 16 16 18 Rate Blood Pressure 180/90 H 211/84 H 174/95 H O2 Saturation 98 97 96 Oxygen O2 Source Room air - Labs Labs: Laboratory Tests 06/15/23 06/15/23 06/15/23 14:48 14:48 17:44 WBC 12.5 H RBC 4.76 Hgb 14.0 Hct 42.7 MCV 89.7 MCH 29.4 MCHC 32.8 RDW 13.9 Plt Count 239 MPV 11.5 H Neut # (Auto) 10.2 H Lymph # (Auto) 1.4 L Donley # (Auto) 0.8 Eos # (Auto) 0.0 Baso # (Auto) 0.0 Absolute Nucleated RBC 0.00 Nucleated RBC % 0.0 Sodium 135 Potassium 3.7 Chloride 96 L Carbon Dioxide 28 Anion Gap 11.0 BUN 14 Creatinine 0.9 Estimated GFR (MDRD) 62 L Glucose 122 H Calcium 9.9 Total Bilirubin 0.9 AST 23 ALT 15 Alkaline Phosphatase 75 Total Protein 7.8 Albumin 4.7 Globulin 3.1 Albumin/Globulin Ratio 1.5 Lipase 144 H Urine Color YELLOW Urine Clarity CLEAR Urine pH 6.0 Ur Specific [place] <=1.005 Urine Protein NEGATIVE Urine Glucose (UA) NEGATIVE Urine Ketones 15 H Urine Occult Blood NEGATIVE Urine Nitrite NEGATIVE Urine Bilirubin NEGATIVE Urine Urobilinogen 0.2 (NORMAL) Ur Leukocyte Esterase TRACE H Urine RBC 0-5 Urine WBC 0-3 Ur Squamous Epith Cells MOD Squamous H Urine Bacteria Rare Ur Microscopic Review INDICATED Urine Culture Comments NOT INDICATED - Rads (name of study) CT A/P and RUQ sono Relevant Findings:: Final report received (CT of the abdomen pelvis showing mild right-sided hydronephrosis without obvious obstruction. Right upper quadrant ultrasound demonstrating likely gallbladder polyp without signs of cholecystitis. Complex cyst on the right kidney and heterogenous liver), EMP independent interpretation of test PD Medical Decision Making - ED course ED course: She presents with right-sided abdominal pain. She is had her uterus out and she thinks her appendix 2. She has a known gallstone and initially that was the suspicion but right upper quadrant ultrasound did not show evidence of cholecystitis. She improved significantly after Dilaudid and Zofran but the pain recurred later in the second dose of Dilaudid was needed. Subsequently a CT showing hydronephrosis on that side. Presume she has a mild pyelonephritis and treated with antibiotics but given close return precaution advised follow-up with urology if symptoms are persistent. Departure - Departure Disposition: Home, Self Care Clinical Impression: Abdominal pain Qualifiers: Abdominal location: right lower quadrant Qualified Code(s): R10.31 - Right lower quadrant pain Hydronephrosis Qualifiers: Hydronephrosis type: unspecified Qualified Code(s): N13.30 - Unspecified hydronephrosis Condition: Good Record reviewed to determine appropriate education?: Yes Instructions: ED Abdominal Pain Female Non-Specific Abdominal Pain Follow-Up: Jassi Lamar MD [Provider Admit Priv/Credential] - Prescriptions: Cefdinir 300 mg PO BID #20 cap Oxycodone HCl/Acetaminophen [Percocet 5-325 mg Tablet] 1 - 2 each PO Q6H PRN #14 tablet PRN Reason: pain Ondansetron Odt [Zofran] 4 mg TL Q6H PRN #10 tablet PRN Reason: Nausea / Vomiting Comments: As discussed, your ultrasound showed a gallbladder polyp and the stone in your kidney, but nothing that would be causing current pain. The CAT scan showing hydronephrosis on the right without a stone. The suspicion is this may be from a kidney infection, but certainly would want you to follow-up with urology for further evaluation if pain is persistent after the next couple of days. I sent the prescriptions electronically to [facility] in [place]. Return for new or worsening symptoms. I am prescribing a short course of narcotic pain medication for you. These are potentially dangerous and addictive medications that should be used carefully. These medications may constipate you. Take an rshe-[id number] stool softener (docusate) twice daily with plenty of water while taking these medications. If you go 24 hours without a bowel movement, take [id number] miralax, per package instructions. Do not drink or drive while taking these medications. If you received narcotic or sedating medications while in the emergency department, do not drive for 24 hours. Store this medication in a safe, secure place and out of reach of children. It is a violation of federal law to give or sell this medication to another person or to use in a manner other than prescribed. The ED will not refill narcotic prescriptions, including prescriptions lost or stolen. To dispose of unwanted medications: 1. [facility] provides a drop box for medication in pill form only (no liquids) 8:00 am to 4:30 p.m. Saturday-Saturday in the lobby of the [facility], [address] [place] [address]. Empty pills into ziplock bag before disposal. Call [phone] for information. 2.[employer] is a free service available to all [facility] residents. Go to [email or web address]/ Note that many narcotic pain relievers also contain Tylenol/acetaminophen. Please ensure that your total dose of acetaminophen from all sources does not exceed 3 g (3000 mg) per day. Forms: PCP List
[2023-06-15] MEDS ORDERED: hydroCHLOROthiazide 25 MG TABLET PO STA (16:34)
[2023-06-15] MEDS ORDERED: LOSARTAN 50 MG TABLET PO STA (16:34)
--- NOTE | 2023-06-15 17:27 | Ultrasound Report ---
PROCEDURE: Abdomen Limited INDICATIONS: RUQ pain TECHNIQUE: Real-time focused scanning was performed of the abdomen, with image documentation. COMPARISONS: 03/11/2020. Correlation is made with CT, 03/28/2023. FINDINGS: Liver: Liver is normal in size and heterogeneous in echotexture. Gallbladder: A nonmobile echogenic focus can be seen involving the gallbladder fundus, without shadow ing, that measures 1 cm. No abnormal vascularity can be seen. No gallstones or significant sludge can be seen. The gallbladder wall does not appear thickened. There is no specific pericholecystic fluid. The sonographic Daly's sign is negative. Biliary ducts: Intrahepatic bile ducts are non-dilated. Extrahepatic bile duct caliber measures 4 m m. Normal is 6-7 mm or less in diameter, or 10 mm or less post-cholecystectomy. Pancreas: The pancreas is not well seen. Right kidney: Normal in size and echotexture. Right kidney measures 10.5 cm long. No hydronephrosis or nephrolithiasis. No solid masses. There is an apparent complex cyst seen involving the right kidn ey that measures 4.2 x 4 x 4.6 cm. A likely 11 mm stone is also seen within the right kidney. IVC: Intrahepatic inferior vena cava is patent. Miscellaneous: No free abdominal fluid. IMPRESSION: Apparent on involving the fundus of the gallbladder, without additional therapy signs of cholecystiti s. Abnormal right kidney, with a complex cyst and a nonobstructing stone. Heterogeneous liver noted. Note: Concordant preliminary findings given by the keyseating machine set up operator upon the completion of the examination to Dr. Henley. Reviewed by: Chava Barger MD on 06/15/2023 4:25 PM YOANA Approved by: Chava Barger MD on 06/15/2023 4:25 PM YOANA Station ID: [id number]
[2023-06-15] MEDS ORDERED: iohexoL-300 100 ML VIAL IVP ONE (17:44)
[2023-06-15 17:52] LABS: BILIRUBIN,URINE NEGATIVE (NEGATIVE); GLUCOSE, URINE (UA) NEGATIVE (NEGATIVE); KETONES,URINE (UA) 15 mg/dL (NEGATIVE); LEUKOCYTE ESTERASE, URINE TRACE (NEGATIVE); NITRITE,URINE NEGATIVE (NEGATIVE); OCCULT BLOOD,URINE NEGATIVE (NEGATIVE); PROTEIN,URINE NEGATIVE (NEGATIVE); UROBILINOGEN,URINE 0.2 (NORMAL) E.U./dL (NORMAL)
--- NOTE | 2023-06-15 17:52 | CT Report ---
PROCEDURE: ABDOMEN/PELVIS W INDICATIONS: Right-sided abdominal pain IV only CONTRAST: 100ml omni 300 TECHNIQUE: After the administration of IV contrast, 5 mm thick sections acquired from the diaphragms to the symp hysis. 5 mm thick coronal and sagittal reformats were acquired. For radiation dose reduction, the f ollowing was used: automated exposure control, adjustment of mA and/or kV according to patient size. COMPARISON: 03/28/2023. Correlation is made with the accompanying abdominal ultrasound. FINDINGS: Image quality: Excellent. Lung bases and heart: Unremarkable. Liver: No solid mass. Gallbladder and biliary tree: Within normal limits. The previously suspected gallstones are seen on t he current study. Spleen: No splenomegaly. Pancreas: The pancreas is heterogeneous, yet without a suspicious mass identified. No mono pancreati c ductal dilatation is seen. Adrenals: No adrenal nodule. Kidneys and ureters: There is a mild degree of right-sided hydronephrosis. No mono hydroureter is se en. No definite right ureteral stones are seen. The kidneys demonstrate normal size and enhance symme trically. There is a right renal cyst seen measuring 4.2 cm, with mild wall irregularity. There is a nonobstructing right-sided kidney stone measuring 3 to 4 mm. Bowel and peritoneum: No bowel distension. No pathologic free fluid. Apparent prior appendectomy. Div erticulosis can be seen, without mono findings of active diverticulitis. Lymph nodes: No central or retroperitoneal adenopathy. Vessels: No infrarenal aortic aneurysm. PELVIS Reproductive organs: This patient is status post hysterectomy. No adnexal masses can be seen. Bladder: No abnormal wall thickening, accounting for underdistension. Pelvic lymph nodes: No pelvic adenopathy by size criteria. Bones: No aggressive osseous abnormality. Other: Prior postoperative change can be seen of the anterior abdominal wall, with moderate fat-conta ining epigastric hernia. IMPRESSION: There is mild right-sided hydronephrosis, which is worse than on the prior examination, yet without a n obstructing stone seen. Please consider UTI. Apparent prior appendectomy. No significant gallbladder abnormality is seen by CT. Additional findings: Moderate fat-containing epigastric hernia Irregularity of the pancreas Mildly complex right renal cyst. Nonobstructing right renal stone Diverticulosis, without findings of active diverticulitis. Hysterectomy Reviewed by: Chava Barger MD on 06/15/2023 4:51 PM AKDT Approved by: Chava Barger MD on 06/15/2023 4:51 PM [id number] Station ID: [id number]
[2023-06-15 18:01] LABS: BACTERIA,URINE Rare /HPF (None Seen); CLARITY,URINE CLEAR (CLEAR); RBC,URINE 0-5 /HPF (0-5); SQUAMOUS EPITHELIAL CELL,UR MOD Squamous (<= Few); WBC,URINE 0-3 /HPF (0-5)
[2023-06-15] MEDS ORDERED: oxyCODONE/ACET 5/325 Prepack 4 PO STA (18:29)
[2023-06-15] MEDS ORDERED: ONDANSETRON ODT 4 MG Prepack 2 TL STA (18:29)
[2023-06-15] MEDS ORDERED: cefTRIAXone 1 GM VIAL IVP STA (18:29)
[2023-06-15] MEDS ORDERED: KETOROLAC 15 MG/ML VIAL IVP STA (18:29)
[2023-06-15 19:13] VITALS: BP 174/95; O2SAT 96
== END 2023-06-15 18:53 | disposition home or self-care (01) ==
LOC: ED 14:27
DX: N13.30 Unspecified hydronephrosis (principal); R10.31 Right lower quadrant pain; I10 Essential (primary) hypertension; E78.00 Pure hypercholesterolemia, unspecified; Z79.899 Other long term (current) drug therapy
CPT/HCPCS: 36415; 74177; 76705; 80053; 81001; 83690; 85025; 96374; 96375; 96376; 99284; 99285; A9270; J1170; Q9967; 81003; 87086

== ENCOUNTER 2023-09-25 16:38 | Outpatient (CLI) | payer MEDICARE | END 2023-09-25 16:39 | disposition critical access hospital (66) | LOC: EMS 16:38 | DX: I48.91 Unspecified atrial fibrillation (principal); R06.09 Other forms of dyspnea; R53.1 Weakness | CPT/HCPCS: A0425; A0429 ==

== ENCOUNTER 2023-09-25 17:02 | Inpatient (IN) | payer MEDICARE ==
[2023-09-25] MEDS: diltiaZEM INJ 5 MG/ML VIAL IVP STA ×2 (17:16→18:18)
[2023-09-25 17:25] LABS: BASOPHILS % (AUTO) 0.4 %; EOSINOPHILS # (AUTO) 0.1 10^3/uL (0.0-0.7); EOSINOPHILS % (AUTO) 1.2 %; HCT - HEMATOCRIT 39.2 % (37.0-47.0); HGB - HEMOGLOBIN 12.4 g/dL (12.0-16.0); LYMPHOCYTES % (AUTO) 38.3 %; MEAN CORPUSCULAR HEMOGLOBIN 29.9 pg (27.0-31.0); MEAN CORPUSCULAR HGB CONC 31.6 g/dL (32.0-36.0); MEAN CORPUSCULAR VOLUME 94.5 fL (81.0-99.0); MEAN PLATELET VOLUME 11.5 fL (7.9-10.8); MONOCYTES # (AUTO) 0.4 10^3/uL (0.0-1.0); MONOCYTES % (AUTO) 8.1 %; NEUTROPHILS # (AUTO) 2.7 10^3/uL (1.5-6.6); NEUTROPHILS % (AUTO) 51.8 %; PLT - PLATELET COUNT 203 10^3/uL (130-450); RED BLOOD COUNT 4.15 10^6/uL (4.20-5.40); RED CELL DISTRIBUTION WIDTH 14.3 % (12.0-15.0); WHITE BLOOD COUNT 5.2 x10^3/uL (4.8-10.8)
--- NOTE | 2023-09-25 17:30 | ED Physician Documentation ---
History of Present Illness - Stated complaint Stated Complaint: HEART ISSUE - Chief complaint Chief Complaint: Cardiac - History obtained from History obtained from: Patient - History of Present Illness Pain level max: 0 Pain level now: 0 - Additonal information Additional information: Patient is a 73-year-old female who presents to the emergency department complaining of intermittent shortness of breath and racing heart rate for the past 6 to 8 weeks. Went to her PCP today and was noted to be in atrial fibrillation with rapid ventricular response. Denies any prior history of atrial fibrillation. She is not on any blood thinners or rate controlling medications. She has not had any chest pain. She does feels out of breath ea sily when she walks. No cardiac history. She drinks alcohol 2-3 times per week. Does not smoke. Review of Systems Constitutional: denies: Fever, Chills Respiratory: denies: Cough GI: denies: Vomiting, Diarrhea Skin: denies: Rash Musculoskeletal: denies: Neck pain, Back pain Neurologic: denies: Headache PD PAST MEDICAL HISTORY - Past Medical History Past Medical History: Yes Cardiovascular: Hypertension, High cholesterol Respiratory: None Neuro: None Endocrine/Autoimmune: None GI: GERD, Hiatal hernia HAND OUTSIDE CUTTER: None : Frequency HEENT: Chronic hearing loss Psych: Depression, Anxiety, Claustrophobia Musculoskeletal: None Derm: None - Past Surgical History Past Surgical History: Yes General: Appendectomy /HAND OUTSIDE CUTTER: Hysterectomy HEENT: Tonsil/Adenoidectomy - Present Medications Home Medications: Ambulatory Orders Medication Instructions Recorded Confirmed Atorvastatin Calcium [Lipitor] 40 mg PO QPM 10/19/16 09/25/23 Trazodone HCl 200 mg PO QPM 10/19/16 09/25/23 buPROPion HCL [Bupropion HCl Sr] 300 mg PO DAILY 10/19/16 09/25/23 Escitalopram [Lexapro] 10 mg PO DAILY 09/25/23 09/25/23 Glucosamine Sulfate 500 mg PO DAILY 09/25/23 09/25/23 Losartan [Cozaar] 50 mg PO DAILY 09/25/23 09/25/23 hydroCHLOROthiazide [Hydrodiuril] 12.5 mg PO DAILY 09/25/23 09/25/23 - Allergies Allergies/Adverse Reactions: Allergies Allergy/AdvReac Type Severity Reaction Status Date / Time No Known Drug Allergies Allergy Verified 09/25/23 17:09 - Social History Does the pt smoke?: No Smoking Status: Never smoker Does the pt drink ETOH?: No Does the pt have substance abuse?: No - Immunizations Immunizations are current?: Yes - POLST Patient has POLST: No PD ED PE NORMAL - Vitals Vital signs reviewed: Yes - General General: Alert and oriented X 3, No acute distress - HEENT HEENT: Moist mucous membranes - Neck Neck: Supple, no meningeal sign - Cardiac Cardiac: Other (Irregular, tachycardic) - Respiratory Respiratory: No respiratory distress, Clear bilaterally - Abdomen Abdomen: Soft, Non tender, Non distended - Derm Derm: Warm and dry - Extremities Extremities: No deformity, No edema, No calf tenderness / cord - Neuro Neuro: Alert and oriented X 3 - Psych Psych: Normal mood, Normal affect Results - Vitals Vitals: Vital Signs - 24 hr 09/25/23 09/25/23 09/25/23 17:07 17:09 17:14 Temperature 37.2 C Heart Rate 133 H 138 H 118 H Respiratory 17 22 22 Rate Blood Pressure 147/101 H 147/101 H 149/110 H O2 Saturation 95 94 94 09/25/23 09/25/23 09/25/23 17:30 18:02 18:37 Temperature Heart Rate 137 H 130 H 103 H Respiratory 22 20 23 Rate Blood Pressure 140/97 H 123/100 H 110/91 H O2 Saturation 94 94 93 09/25/23 09/25/23 18:41 19:17 Temperature Heart Rate 102 H 135 H Respiratory Rate Blood Pressure 152/110 H O2 Saturation Oxygen O2 Source Room air - EKG (time done) 1718 EKG releavant findings:: EKG personally interpreted by author of this note. Relevant findings are: Rate: Rate (enter#) (137) Rhythm: Atrial fibrillation (RVR) [place]: Normal QRS: Normal Ischemia: Non specific changes - Labs Labs: Laboratory Tests 09/25/23 09/25/23 09/25/23 17:16 17:16 17:16 WBC 5.2 RBC 4.15 L Hgb 12.4 Hct 39.2 MCV 94.5 MCH 29.9 MCHC 31.6 L RDW 14.3 Plt Count 203 MPV 11.5 H Neut # (Auto) 2.7 Lymph # (Auto) 2.0 [place] # (Auto) 0.4 Eos # (Auto) 0.1 Baso # (Auto) 0.0 Absolute Nucleated RBC 0.00 Nucleated RBC % 0.0 Sodium 140 Potassium 3.9 Chloride 103 Carbon Dioxide 30 Anion Gap 7.0 BUN 23 H Creatinine 1.1 Estimated GFR (MDRD) 49 L Glucose 104 Calcium 9.7 Total Bilirubin 0.7 AST 29 ALT 24 Alkaline Phosphatase 69 Troponin I High Sens 5.3 B-Natriuretic Peptide 363 H Total Protein 6.6 Albumin 4.4 Globulin 2.2 Albumin/Globulin Ratio 2.0 Lipase 22 - Rads (name of study) Chest x-ray Relevant Findings:: Final report received, See rad report PD Medical Decision Making - ED course Complexity details: reviewed results, re-evaluated patient, considered differential, d/w patient, d/w financial planning consultant ED course: Patient with new onset atrial fibrillation with rapid ventricular response. Negative high sensitive troponin after 6 weeks of symptoms. No chest pain. She was given 2 doses of diltiazem IV, heart rate still is spiking to the 130s and 140s, but will occasionally come down to the low 100s. Not hypotensive. Therefore she was started on a diltiazem drip. She was also started on Eliquis given her [id number] score of 3. Appears that she may have heart failure as well which will increase her [id number] score to 4. We will admit the patient to the ICU on a diltiazem drip and plan for echo in the morning. Consult placed with the nighttime hospitalist. Discussed the case with the nighttime hospitalist who accepts Discussed risks and benefits of DOAC therapy. She has no contraindications. No active bleeding. No history of bleeding ulcers or GI bleeding. No trauma. This document was made in part using voice recognition software. While efforts are made to proofread this document, sound alike and grammatical errors may occur. Departure - Departure Disposition: ED Place in Observation Clinical Impression: Atrial fibrillation with rapid ventricular response, New onset a-fib Condition: Stable Discharge Date/Time: 09/25/23 20:26
--- NOTE | 2023-09-25 17:38 | XRAY Report ---
PROCEDURE: Chest 1V INDICATIONS: Chest Pain TECHNIQUE: One view of the chest was acquired. COMPARISON: None. FINDINGS: Surgical changes and devices: None. Lungs and pleura: No pleural effusions or pneumothorax. Lungs are clear. Mediastinum: Mediastinal contours appear normal. Heart size is enlarged. Bones and chest wall: No suspicious bony lesions. Overlying soft tissues appear unremarkable. IMPRESSION: No acute cardiopulmonary process. Reviewed by: Tyson Rogers MD on 09/25/2023 5:37 PM PST Approved by: Tyson Rogers MD on 09/25/2023 5:37 PM PST Station ID: [id number]
[2023-09-25 17:43] LABS: ALBUMIN 4.4 g/dL (3.2-5.5); BILIRUBIN,TOTAL 0.7 mg/dL (0.2-1.0); CALCIUM 9.7 mg/dL (8.5-10.3); CREATININE 1.1 mg/dL (0.6-1.3); POTASSIUM 3.9 mmol/L (3.5-4.5); TOTAL PROTEIN 6.6 g/dL (6.4-8.9)
[2023-09-25 17:44] LABS: TROPONIN I HIGH SENSITIVITY 5.3 ng/L (2.3-14.8)
[2023-09-25] MEDS ORDERED: diltiaZEM INJ 5 MG/ML VIAL ONE (19:21)
[2023-09-25] MEDS: APIXABAN 5 MG TABLET PO STA (19:26)
[2023-09-25] MEDS: ASPIRIN CHEW 81 MG TABLET PO STA (19:27)
[2023-09-25] MEDS ORDERED: ONDANSETRON 4 MG/2 ML VIAL IVP PRN (19:37)
[2023-09-25] MEDS: diltiaZEM INJ 125 MG in DEXTROSE 5% 100 ML IV SCH ×2 (19:40→20:43)
--- NOTE | 2023-09-25 19:51 | HISTORY & PHYSICAL EXAMINATION ---
Chief Complaint - Chief Complaint Chief Complaint: SOB History of Present Illness - History of Present Illness HPI Comment/Other: 73 Y OLD FEMALE with PMH HTN, HLP, anxiety came with c/o shortness of breath and palpitations for last 6 weeks. Denies syncope, fever, chest pain, nausea, vomiting, diarrhea, symptoms Pt went to PCP today and had A fib with RVR On presetation pt was tachycardic, afebrile Labs showed normal WBC, BNP 383 CXR neg EKG showed a fib with RVR In ER, pt was given diltazem IVP x 2 and then started on dilatizem gtt, Pt also received eliquis Pt is admitted due to afib with RVR and Acute CHF exacerbation History - Past Medical History Cardiovascular: reports: Hypertension, High cholesterol Respiratory: reports: None Neuro: reports: None Endocrine/Autoimmune: reports: None GI: reports: GERD, Hiatal hernia PILE FABRIC KNITTER: reports: None : reports: Frequency HEENT: reports: Chronic hearing loss Psych: reports: Depression, Anxiety, Claustrophobia Musculoskeletal: reports: None Derm: reports: None MRSA Hx?: No - Past Surgical History General: reports: Appendectomy /PILE FABRIC KNITTER: reports: Hysterectomy HEENT: reports: Tonsil/Adenoidectomy - POLST Patient has POLST: No Meds/Allgy - Home Medications Home Medications: Ambulatory Orders Medication Instructions Recorded Confirmed Atorvastatin Calcium [Lipitor] 40 mg PO QPM 10/19/16 09/25/23 Trazodone HCl 200 mg PO QPM 10/19/16 09/25/23 buPROPion HCL [Bupropion HCl Sr] 300 mg PO DAILY 10/19/16 09/25/23 Escitalopram [Lexapro] 10 mg PO DAILY 09/25/23 09/25/23 Glucosamine Sulfate 500 mg PO DAILY 09/25/23 09/25/23 Losartan [Cozaar] 50 mg PO DAILY 09/25/23 09/25/23 hydroCHLOROthiazide [Hydrodiuril] 12.5 mg PO DAILY 09/25/23 09/25/23 - Allergies Allergies/Adverse Reactions: Allergies Allergy/AdvReac Type Severity Reaction Status Date / Time No Known Drug Allergies Allergy Verified 09/25/23 17:09 Review of Systems - Other Findings Other Findings: 10 points systems were reviewed and were negative except mentioned in HPI Exam - Vital Signs Vital Signs: Vital Signs x48h Temp Pulse Resp BP Pulse Ox 09/25/23 18:41 102 H 09/25/23 18:37 103 H 23 110/91 H 93 09/25/23 18:02 130 H 20 123/100 H 94 09/25/23 17:30 137 H 22 140/97 H 94 09/25/23 17:14 118 H 22 149/110 H 94 09/25/23 17:09 138 H 22 147/101 H 94 09/25/23 17:07 37.2 C 133 H 17 147/101 H 95 - Physical Exam General Appearance: positive: No acute distress Eyes Bilateral: positive: Normal inspection ENT: positive: ENT inspection nml Neck: positive: Nml inspection Cardiovascular: positive: Irregularly irregular, Tachycardia Abdomen: positive: Non-tender, Nml bowel sounds Skin: positive: No rash Extremities: positive: Non-tender, No pedal edema Neurologic/Psychiatric: positive: Oriented x3, Motor nml Conclusion/Plan - Lab Results Fish Bones: 09/25/23 17:16 09/25/23 17:16 - Other Other Results/Comments: A: Afib with RVR Acute CHF exacerbation, unspecified HTN Hyperlipidemia Anxiety Plan: Admit in ICU Cont cardiac monitoring Seriel cardiac enzymes Check TSH Echo Cont diltiazem gtt Eliquis 5 mg bid Cardiolgy consult in am Start lasix 20 mg iv bid Start lisinopril 5 mg qd Monitor i/o, electrolytes Cont atorvastatin DVT prophylaxic: SCD, on Eliquis Fulll code Pt is admitted as inpatient as more than 2 midnight stay is expected
[2023-09-25] MEDS: FUROSEMIDE 20 MG/2 ML VIAL IVP SCH (21:29)
[2023-09-25] MEDS: SODIUM CHLORIDE FLUSH 0.9% 10 ML SYRINGE IVP SCH (21:30)
[2023-09-25] MEDS: APIXABAN 5 MG TABLET PO SCH (21:35)
[2023-09-25] MEDS: traZODone 50 MG TABLET PO ONE (21:38)
--- NOTE | 2023-09-26 08:44 | PHARMACY PROGRESS NOTE ---
- Best Possible Medication History Admit Date and Time: 09/25/231937 Processed by: Nursing Medication History completed: Yes Patient Interview: Completed As the person ultimately responsible for medication therapy, providers are able to order a medication from an existing home medication list in [facility] via the "Reconcile Routine" prior to Confirmation of that medication by field technical support consultant. Such practice is discouraged except when the physician, in their clinical judg ment, deems that a medical need exists for a medication without regard to previous use.
[2023-09-26] MEDS: ATORVASTATIN 40 MG TABLET PO SCH ×2 (09:00→20:10)
[2023-09-26] MEDS: lisinopriL 5 MG TABLET PO SCH (09:00)
--- NOTE | 2023-09-26 14:07 | PROVIDER PROGRESS NOTE ---
Subjective - Prog Note Date Prog Note Date: 09/26/23 Prog Note Time: 11:00 - Subjective Pt reports feeling: Improved (feeling better, reviewed plan of transition to PO meds and weaning off dilt gtt, she feels ready to go home, HR has been 80-120s on tele, still on dilt gtt 15 mg/hr at time of visit. Denies chest pain, shortness of breath, nausea.) Current Medications - Current Medications Current Medications: Active Medications Generic Name Dose Route Start Last Admin Trade Name Freq PRN Reason Stop Dose Admin Apixaban 5 mg 09/25/23 21:00 09/26/23 09:00 Apixaban 5 Mg Tablet PO 5 mg BID MAY Administration Atorvastatin Calcium 40 mg 09/26/23 09:00 09/26/23 09:00 Atorvastatin 40 Mg Tablet PO 40 mg DAILY MAY Administration Furosemide 20 mg 09/25/23 21:00 09/26/23 09:00 Furosemide 20 Mg/2 Ml Vial IVP 20 mg BID MAY Administration Diltiazem HCl 125 mg/ Dextrose 125 mls @ 5 mls/hr 09/25/23 20:00 09/26/23 12:09 IV 15 mg/hr .Q25H MAY 15 mls/hr Administration Protocol 5 MG/HR Lisinopril 5 mg 09/26/23 09:00 09/26/23 09:00 Lisinopril 5 Mg Tablet PO 5 mg DAILY MAY Administration Ondansetron HCl 4 mg 09/25/23 19:37 Ondansetron 4 Mg/2 Ml Vial IVP Q6HR PRN Nausea / Vomiting Sodium Chloride 10 ml 09/25/23 19:37 Sodium Chloride Flush 0.9% 10 Ml Syringe IVP PRN PRN NEEDED PER PROVIDER ORDERS Sodium Chloride 10 ml 09/26/23 01:00 09/26/23 09:00 Sodium Chloride Flush 0.9% 10 Ml Syringe IVP 10 ml 0100,0900,1700 MAY Administration Atorvastatin Calcium [Lipitor] 40 mg PO QPM 10/19/16 Trazodone HCl 200 mg PO QPM 10/19/16 buPROPion HCL [Bupropion HCl Sr] 300 mg PO DAILY 10/19/16 Escitalopram [Lexapro] 10 mg PO DAILY 09/25/23 Glucosamine Sulfate 500 mg PO DAILY 09/25/23 Losartan [Cozaar] 50 mg PO DAILY 09/25/23 hydroCHLOROthiazide [Hydrodiuril] 12.5 mg PO DAILY 09/25/23 Objective - Vital Signs/Intake & Output Reviewed Vital Signs: Yes Vital Signs: Vital Signs x48h Temp Pulse Resp BP Pulse Ox O2 Flow Rate 09/26/23 13:00 91 20 105/93 H 91 L 09/26/23 12:00 92 22 104/83 H 93 09/26/23 11:00 108 H 19 118/75 94 1 09/26/23 10:00 92 19 128/79 91 L 09/26/23 09:00 111 H 24 121/88 H 90 L 0 09/26/23 08:00 102 H 26 H 129/90 H 95 1 09/26/23 07:55 36.5 C 09/26/23 07:00 87 22 110/75 95 1 Intake & Output: Intake & Output 09/23/23 09/24/23 09/25/23 09/26/23 23:59 23:59 23:59 23:59 Intake Total 14.75 624.25 Output Total 800 1700 Balance -785.25 -1075.75 - Objective General Appearance: positive: No acute distress Eyes Bilateral: positive: No scleral icterus Respiratory: positive: Chest non-tender, No respiratory distress, Breath sounds nml Cardiovascular: positive: No murmur, Irregularly irregular Peripheral Pulses: 1+ Dorsalis pedis (R), 1+ Dorsalis pedis (L) Abdomen: positive: Non-tender, No organomegaly, Nml bowel sounds Skin: positive: Color nml, No rash, Warm, Dry Extremities: positive: Nml appearance, No pedal edema Neurologic/Psychiatric: positive: Oriented x3, Mood/affect nml - Lab Results Fish Bones: 09/25/23 17:16 09/25/23 17:16 Other Labs: Lab Results x24hrs 09/26/23 09/25/23 09/25/23 Range/Units 04:20 20:40 17:16 WBC (4.8-10.8) x10^3/uL RBC (4.20-5.40) 10^6/uL Hgb (12.0-16.0) g/dL Hct (37.0-47.0) % MCV (81.0-99.0) fL MCH (27.0-31.0) pg MCHC (32.0-36.0) g/dL RDW (12.0-15.0) % Plt Count (130-450) 10^3/uL MPV (7.9-10.8) fL Neut # (Auto) (1.5-6.6) 10^3/uL Lymph # (Auto) (1.5-3.5) 10^3/uL [place] # (Auto) (0.0-1.0) 10^3/uL Eos # (Auto) (0.0-0.7) 10^3/uL Baso # (Auto) (0.0-0.1) 10^3/uL Absolute Nucleated RBC x10^3/uL Nucleated RBC % /100WBC Sodium (135-145) mmol/L Potassium (3.5-4.5) mmol/L Chloride (101-111) mmol/L Carbon Dioxide (21-32) mmol/L Anion Gap (6-13) BUN (6-20) mg/dL Creatinine (0.6-1.3) mg/dL Estimated GFR (MDRD) (>89) Glucose (74-104) mg/dL Calcium (8.5-10.3) mg/dL Total Bilirubin (0.2-1.0) mg/dL AST (10-42) IU/L ALT (10-60) IU/L Alkaline Phosphatase (42-121) IU/L Troponin I High Sens 4.9 (2.3-14.8) ng/L B-Natriuretic Peptide (5-100) pg/mL Total Protein (6.4-8.9) g/dL Albumin (3.2-5.5) g/dL Globulin (2.1-4.2) g/dL Albumin/Globulin Ratio (1.0-2.2) Lipase (11-82) U/L TSH 1.29 (0.34-5.60) uIU/mL Nasal Screen MRSA (PCR) NEGATIVE (NEGATIVE) 09/25/23 09/25/23 09/25/23 Range/Units 17:16 17:16 17:16 WBC 5.2 (4.8-10.8) x10^3/uL RBC 4.15 L (4.20-5.40) 10^6/uL Hgb 12.4 (12.0-16.0) g/dL Hct 39.2 (37.0-47.0) % MCV 94.5 (81.0-99.0) fL MCH 29.9 (27.0-31.0) pg MCHC 31.6 L (32.0-36.0) g/dL RDW 14.3 (12.0-15.0) % Plt Count 203 (130-450) 10^3/uL MPV 11.5 H (7.9-10.8) fL Neut # (Auto) 2.7 (1.5-6.6) 10^3/uL Lymph # (Auto) 2.0 (1.5-3.5) 10^3/uL [place] # (Auto) 0.4 (0.0-1.0) 10^3/uL Eos # (Auto) 0.1 (0.0-0.7) 10^3/uL Baso # (Auto) 0.0 (0.0-0.1) 10^3/uL Absolute Nucleated RBC 0.00 x10^3/uL Nucleated RBC % 0.0 /100WBC Sodium 140 (135-145) mmol/L Potassium 3.9 (3.5-4.5) mmol/L Chloride 103 (101-111) mmol/L Carbon Dioxide 30 (21-32) mmol/L Anion Gap 7.0 (6-13) BUN 23 H (6-20) mg/dL Creatinine 1.1 (0.6-1.3) mg/dL Estimated GFR (MDRD) 49 L (>89) Glucose 104 (74-104) mg/dL Calcium 9.7 (8.5-10.3) mg/dL Total Bilirubin 0.7 (0.2-1.0) mg/dL AST 29 (10-42) IU/L ALT 24 (10-60) IU/L Alkaline Phosphatase 69 (42-121) IU/L Troponin I High Sens 5.3 (2.3-14.8) ng/L B-Natriuretic Peptide 363 H (5-100) pg/mL Total Protein 6.6 (6.4-8.9) g/dL Albumin 4.4 (3.2-5.5) g/dL Globulin 2.2 (2.1-4.2) g/dL Albumin/Globulin Ratio 2.0 (1.0-2.2) Lipase 22 (11-82) U/L TSH (0.34-5.60) uIU/mL Nasal Screen MRSA (PCR) (NEGATIVE) ABX Reporting Has patient been on IV antibiotics over the past 48 hours?: No Assessment/Plan - Problem List (1) Atrial fibrillation with rapid ventricular response Impression: HR 130s with dyspnea on presentation to ED. No response to 2 doses of diltiazem IVP, placed on diltiazem gtt. CXR lungs clear. Initially required oxygen, now on RA. Plan: Start PO diltiazem and wean down diltiazem gtt, goal HR<110 (2) New onset a-fib Impression: No history of afib in past. TSH 1.29. High sensitivity troponin in range. [id number] score 4 (age, sex, CHF, HTN), started on Eliquis here. Denies significant caffeine use. Plan: echo pending to r/o valvular disease or thrombosis, outpatient follow up with cardiology, continue Eliquis (3) Chronic diastolic (congestive) heart failure Impression: Chart notes prior h/o HF. Prior echo 2017 with EF 65-70% and grade II diastolic dysfunction. She is on HCTZ at home. BNP 363 on admit but no prior result for comparison. No edema on exam to suggest CHF exacerbation. BNP likely elevated due to afib RVR. CXR no pulmonary edema. Plan: Repeat echo in setting of new onset afib, continue Lasix, follow el ectrolytes with goal to keep K~4, Mg~2. (4) Hypertension Impression: BP mildly elevated on admission, now stable. Plan: Continue ACEi (is on ARB at home). Is on HCTZ at home (on Lasix here), continue diuretic. Qualifiers: Hypertension type: primary hypertension Qualified Code(s): I10 - Essential (primary) hypertension (5) Hyperlipidemia Impression: Stable. Plan: Continue statin Qualifiers: Qualified Code(s): E78.5 - Hyperlipidemia, unspecified (6) Depression with anxiety Impression: Stable. On trazodone, Wellbutrin, and Lexapro at home. Plan: Restart home meds as appropriate
[2023-09-26] MEDS: buPROPion SR 150 MG TABLET PO SCH ×2 (16:55→20:17)
[2023-09-26] MEDS: ESCITALOPRAM 10 MG TABLET PO SCH (16:57)
[2023-09-26] MEDS: diltiaZEM CD 180 MG CAPSULE PO SCH (16:57)
[2023-09-26] MEDS: traZODone 50 MG TABLET PO SCH (20:09)
[2023-09-26] MEDS: SODIUM CHLORIDE FLUSH 0.9% 10 ML SYRINGE IVP PRN (20:11)
[2023-09-27 05:11] LABS: CALCIUM 9.1 mg/dL (8.5-10.3); CREATININE 1.2 mg/dL (0.6-1.3); MAGNESIUM 1.8 mg/dL (1.7-2.3); POTASSIUM 3.6 mmol/L (3.5-4.5)
[2023-09-27] MEDS: diltiaZEM INJ 5 MG/ML VIAL IVP ONE (08:58)
[2023-09-27] MEDS: polyethylene glycoL 3350 17 GM PACKET PO SCH (08:58)
--- NOTE | 2023-09-27 09:10 | Discharge Plan ---
Discharge Plan Problem Reviewed?: Yes Disposition: Home, Self Care Condition: Stable Prescriptions: diltiaZEM CD [Cardizem Cd] 240 mg PO DAILY #30 cap Apixaban [Eliquis] 5 mg PO BID #60 tab Diet: Low Sodium Activity Restrictions: Activity as Tolerated Shower Restrictions: No Driving Restrictions: No Health Concerns: You presented to the hospital with shortness of breath and a racing heart rate for 6 to 8 weeks. You went to see your primary care provider and she found you to be in atrial fibrillation with a very fast heart rate that was putting you into congestive heart failure. The causes of atrial fibrillation are dilated heart chambers, valvular heart disease, heart attack, thyroid disease, or blood clots to the lungs. You were evaluated for those things and you were not having a heart attack, and your echocardiogram shows you have dilated chambers in the upper part of your heart. All the other causes were also found to be negative. We treated you with rate lowering drugs so that your heart rate would stay below 100. And we started you on a blood thinner to reduce your risk of stroke from atrial fibrillation. Your heart rate is now in the 70s to 90s. You are off oxygen. You are breathing normally. And feel safe to go home. Plan of Treatment: 1. Please see your primary care provider in the next 1 to 2 weeks for follow-up 2. Your primary care provider needs to refer you to cardiology 3. The rate lowering drugs Cardizem CD. 180 mg capsule. It has been called into the pharmacy and you need to take that once a day. 4. The blood thinner is Eliquis 5 mg twice a day. However your insurance may not pay for this. I have attempted to call your pharmacy and unfortunately they are understaffed and not able to answer the phone. If your insurance company does not cover this medication, have asked them to call me back so I can represcribe a different medication. 5. At this point in time no restrictions to your activity other than I would ask you to avoid high risk activities such as skiing, skydiving, climbing trees etc. You are on a blood thinner and a fall could be catastrophic. You cannot take any nonsteroidal anti-inflammatories while you take this blood thinner. So you cannot take aspirin, Aleve, Naprosyn, ibuprofen, Motrin, Celebrex, Voltaren, etc. The only [id number] medicine you can take for pain or inflammation is Tylenol. I would also ask you not to drink alcohol more than 1 drink once or twice a week. Care Goals: . Goal is to stay as independent as far as long as possible and live by herself for as long as possible Assessment: Patient is alert, oriented to person, place, time and situation. She promises to follow through with her visits to see her PCP No Smoking: If you smoke, Please STOP! Call for help. Follow-up with: Manuela Zaomra ARNP [Primary Care Provider] -
[2023-09-27] MEDS: diltiaZEM CD 240 MG CAPSULE PO SCH (09:17)
[2023-09-27 11:06] VITALS: BP 111/65; O2SAT 94
[2023-09-27] MEDS: POTASSIUM CHLORIDE 20 MEQ TABLET PO SCH (11:09)
--- NOTE | 2023-09-27 14:52 | DISCHARGE SUMMARY ---
"Discharge Summary Admit Date: 09/25/23 Discharge Date: 09/27/23 Discharging Provider: Rakel Wang Primary Care Provider: Manuela Zamora Code Status: Attempt Resuscitation Condition at Discharge: Stable Discharge Disposition: 01 Home, Self Care - DIAGNOSES Admission Diagnoses: Afib with RVR Discharge Diagnoses with Status of Each Condition: (1) Atrial fibrillation with rapid ventricular response Impression: HR 130s with dyspnea on presentation to ED. No response to 2 doses of diltiazem IVP, placed on diltiazem gtt. CXR lungs clear. Plan: Diltiazem (2) New onset a-fib Impression: TSH 1.29. High sensitivity troponin in range. [id number] score 4, started on Eliquis. Denies significant caffeine use. Does drink EtOH. Plan: Echo showed severely dilated left and right atria. Moderate tricuspid regurg. Minimal mitral regurg. No significant aortic valve disease. Hence I think she may need long-term rate control and anticoagulation and may not be successfully cardioverted. I have explained to her that she will need to be seen by counter maker and that her primary care provider should refer her to a counter maker. Continue Eliquis (or equivalent anti-coagulant covered on her plan) (3) Chronic diastolic (congestive) heart failure Impression: Chart notes prior h/o HF. Prior echo 2017 with EF 65-70% and grade II diastolic dysfunction. On HCTZ at home (suspect for HTN). BNP 363 on admit but no prior re sult for comparison, suspect due to afib with RVR. No edema on exam to suggest CHF exacerbation. Plan: Echo with no signs of CHF. Received diuresis here, no need for diuretic at home. (4) Hypertension Impression: BP mildly elevated on admission, now stable. Plan: Stop home ACEi. Continue diltiazem. (5) Hyperlipidemia Impression: Stable. Plan: Continue statin (6) Depression with anxiety Impression: Stable. On trazodone, Wellbutrin at home. Plan: Continue home meds - HPI History of Present Illness: 73 yo F with PMH HTN presented with dyspnea and palpitations for last 6 weeks. Seen in PCP office and noted to have afib RVR, sent to ED for evaluation. - CONSULTS | PROCEDURES Procedures: Echo with normal EF and biatrial enlargement, no significant valvular disease. - HOSPITAL COURSE Hospital Course: Placed on diltiazem gtt in ED which was weaned off after starting PO diltiazem. On day of discharge HR ranged from 90s-110s. Her dose of diltiazem was increased, her ACEi stopped, with improvement in HR. Goal HR<110. She was feeling well and stable for discharge. - ALLERGIES Allergies/Adverse Reactions: Allergies Allergy/AdvReac Type Severity Reaction Status Date / Time No Known Drug Allergies Allergy Verified 09/25/23 17:09 - MEDICATIONS Home Medications: Ambulatory Orders Medication Instructions Recorded Confirmed Atorvastatin Calcium [Lipitor] 40 mg PO QPM 10/19/16 09/25/23 Trazodone HCl 200 mg PO QPM 10/19/16 09/25/23 buPROPion HCL [Bupropion HCl Sr] 300 mg PO DAILY 10/19/16 09/25/23 Glucosamine Sulfate 500 mg PO DAILY 09/25/23 09/25/23 hydroCHLOROthiazide [Hydrodiuril] 12.5 mg PO DAILY 09/25/23 09/25/23 Rivaroxaban [Xarelto] 20 mg PO DAILY #30 tablet 09/27/23 diltiaZEM CD [Cardizem Cd] 240 mg PO DAILY #30 cap 09/27/23 - PHYSICAL EXAM AT DISCHARGE General Appearance: positive: No acute distress, Alert Respiratory: positive: No respiratory distress, Breath sounds nml Cardiovascular: positive: No murmur, Irregularly irregular Peripheral Pulses: positive: 2+ Skin: positive: Color nml, No rash, Warm, Dry Extremities: positive: Non-tender, No pedal edema Neurologic/Psychiatric: positive: Oriented x3, Mood/affect nml - LABS Result Diagrams: 09/25/23 17:16 09/27/23 04:41 - FOLLOW UP Follow Up: Outpatient follow-up with cardiology - TIME SPENT Time Spent in Discharge (Minutes): 50"
== END 2023-09-27 11:45 | disposition home or self-care (01) | DRG 309 ==
LOC: EDUNIT# → ED 17:02 → ICU 19:38 → UNDOADMIN 19:38
PROVIDERS: ADMIT Internal Medicine; ATTEND Specialist
DX: I48.91 Unspecified atrial fibrillation (principal); I10 Essential (primary) hypertension; E78.00 Pure hypercholesterolemia, unspecified; F41.9 Anxiety disorder, unspecified; F32.A Depression, unspecified; I50.32 Chronic diastolic (congestive) heart failure; I11.0 Hypertensive heart disease with heart failure; E78.5 Hyperlipidemia, unspecified; F41.8 Other specified anxiety disorders
CPT/HCPCS: 36415; 71045; 80048; 80053; 83690; 83735; 83880; 84443; 84484; 85025; 87150; 93005; 93307; 96374; 96376; 99285; A9270

== ENCOUNTER 2023-10-09 08:00 | Outpatient (CLI) | payer MEDICARE ==
--- NOTE | 2023-10-09 14:10 | XRAY Report ---
PROCEDURE: Knee 3V BL INDICATIONS: BILATERAL KNEE PAIN TECHNIQUE: 3 views of the knee(s) were acquired. COMPARISON: None. FINDINGS: Bones: No fractures or dislocations. No suspicious bony lesions. Mild tricompartmental DJD. Soft tissues: No suprapatellar joint effusion. Bilateral fabella noted. IMPRESSION: Mild tricompartmental DJD Reviewed by: Bobby Patterson MD on 10/09/2023 2:09 PM PST Approved by: Bobby Patterson MD on 10/09/2023 2:09 PM PST Station ID: [id number]
== END 2023-10-09 23:59 | disposition home or self-care (01) ==
LOC: DI.S 08:00
PROVIDERS: ATTEND Nurse Practitioner Family
DX: M17.0 Bilateral primary osteoarthritis of knee (principal)

== ENCOUNTER 2023-10-09 10:39 | Outpatient (CLI) | payer MEDICARE ==
--- NOTE | 2023-10-11 09:45 | Mammography Report ---
BILATERAL DIGITAL SCREENING MAMMOGRAM 3D/2D: 10/09/2023 CLINICAL: Routine screening. Comparison is made to exams dated: 05/21/2022 mammogram, 09/11/2017 mammogram, and 07/22/2009 mammogr am - [facility]. There are scattered areas of fibroglandular density in both breasts (category b / 25%-50% glandular t issue). There are benign calcifications in both breasts. There also are benign vascular calcifications in harry th breasts. No significant masses, calcifications, or other findings are seen in either breast. There has been no significant interval change. IMPRESSION: BENIGN There is no mammographic evidence of malignancy. A 1 year screening mammogram is recommended. Based on the Tyrer Cuzick model (a risk assessment model) the patient's lifetime risk is 5.2% and her 10 year risk is 3.6%. According to the ACR, ACS, and NCCN guidelines, an annual breast MRI exam angelic g with mammogram is recommended if the patient's lifetime risk is 20% or greater. This exam was interpreted at Station ID: [id number]. NOTE: For mammograms, a report in lay terms will be sent to the patient. Approximately 15% of breast malignancies will not be visualized mammographically. In the management of a palpable breast mass, a negative mammogram must not discourage biopsy of a clinically suspicious lesion. Electronically Signed By: Paul wheeler/latisha:10/10/2023 14:39:13 letter sent: No_Letter ACR BI-RADS Category 2: Benign Finding(s) 3342F PARENCHYMAL PATTERN: (A) - The breast(s) demonstrate(s) scattered fibroglandular densities. BI-RADS CATEGORY: (2) - 2 Mammogram [id number] 1 year screening LATERALITY: (B)
== END 2023-10-09 10:40 | disposition home or self-care (01) ==
LOC: DI.S 10:39
PROVIDERS: ATTEND Nurse Practitioner Family
DX: Z12.31 Encounter for screening mammogram for malignant neoplasm of breast (principal); R92.323 Mammographic fibroglandular density, bilateral breasts

== ENCOUNTER 2024-03-18 12:09 | Outpatient (CLI) | payer MEDICARE | END 2024-03-18 12:10 | disposition home or self-care (01) | LOC: RT 12:09 | PROVIDERS: ATTEND Internal Medicine | DX: I48.19 Other persistent atrial fibrillation (principal) | CPT/HCPCS: 93005 ==

== ENCOUNTER 2024-05-04 11:16 | Outpatient (CLI) | payer MEDICARE ==
[2024-05-04 15:10] LABS: BASOPHILS % (AUTO) 0.5 %; EOSINOPHILS % (AUTO) 0.6 %; HCT - HEMATOCRIT 42.1 % (37.0-47.0); HGB - HEMOGLOBIN 13.7 g/dL (12.0-16.0); LYMPHOCYTES # (AUTO) 1.8 10^3/uL (1.5-3.5); LYMPHOCYTES % (AUTO) 27.7 %; MEAN CORPUSCULAR HEMOGLOBIN 30.4 pg (27.0-31.0); MEAN CORPUSCULAR HGB CONC 32.5 g/dL (32.0-36.0); MEAN CORPUSCULAR VOLUME 93.6 fL (81.0-99.0); MEAN PLATELET VOLUME 11.9 fL (7.9-10.8); MONOCYTES # (AUTO) 0.4 10^3/uL (0.0-1.0); MONOCYTES % (AUTO) 6.1 %; NEUTROPHILS # (AUTO) 4.1 10^3/uL (1.5-6.6); NEUTROPHILS % (AUTO) 64.8 %; PLT - PLATELET COUNT 241 10^3/uL (130-450); RED CELL DISTRIBUTION WIDTH 15.1 % (12.0-15.0); WHITE BLOOD COUNT 6.4 x10^3/uL (4.8-10.8)
[2024-05-04 15:34] LABS: CALCIUM 9.4 mg/dL (8.5-10.3); POTASSIUM 4.2 mmol/L (3.5-4.5)
[2024-05-04 16:00] LABS: INR 1.1 (0.8-1.2); PT - PROTHROMBIN TIME 12.6 secs (9.9-12.6)
== END 2024-05-04 11:17 | disposition home or self-care (01) ==
LOC: LAB.S 11:16
PROVIDERS: ATTEND Internal Medicine
DX: I48.19 Other persistent atrial fibrillation (principal)
CPT/HCPCS: 36415; 80048; 85025; 85610; 85730